=== PATIENT | female | born 2000 | race African-American/Black ===

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

== ENCOUNTER 2021-04-02 07:36 | Inpatient (IN) ==
[2021-04-02] MEDS ORDERED: OXYTOCIN 30 UNITS/500 ML BAG IV PRN ×2 (08:49)
[2021-04-02] MEDS ORDERED: PENICILLIN G POTASSIUM 6 MU in DEXTROSE 5% 250 ML IV STA (09:06)
--- NOTE | 2021-04-02 09:28 | History & Physical Report ---
Date of Service April 02, 2021 Assessment & Plan (1) 37 weeks gestation of : Admit to L&D for IOL for gHTN. CBC, CMP. T&S. Covid swab per protocol. Pitocin. (2) Gestational diabetes mellitus (GDM) affecting , antepartum: Admission and Anticipated Discharge Date Admission Date: April 02, 2021 History of Present Illness Chief Complaint: IOL Primary Care Provider: NADJA Anderson 20yo @ 37 11/01, IOL for gHTN. +FM, no VB, no LOF. No reg ctx. Rice bulb placed yesterday evening, fell out around 11:30 last night. Gest HTN *Weekly BP chk's with Doc *Weekly CBC, LFTs *Weekly NSTs @32wks and twice wkly @36wks *Growth US Q4wks *If IUGR: ROSEY w/UAD's weekly *Deliver 37-38wks *(If Gestational HTN<28wks bring to [facility]) Obesity *BMI 35 or >At start of preg, growth US @ 32wks 2 Vessel Cord * [place] [facility] [facility] [place] *Serial Growth US starting @ 28wks *NSTs @36wks GDM w/28wk glucola *Begin monthly AC Us's @24wks Vaping in Declines flu shot 09/11/20 Low Fraction. Doing [facility] repeat 12/04. Saw MFM - low risk cfdna GBS in urine- treat in labor Labetalol use for headaches - pt discussed with neuro, has not yet started labetalol. 150mg BID- call MFM for higher dosing recommendations (NOT ON MEDS) Allergies Allergy/AdvReac Type Severity Reaction Status Date / Time No Known Allergies Allergy Unknown NONE Verified 04/01/21 11:23 Home Medications Medication Instructions Recorded Confirmed Type prenat.vits,serg,mdg-lgfx-mdkco 1 tab PO DAILY 09/03/20 04/02/21 History magnesium oxide 250 mg PO DAILY 12/06/20 04/02/21 History riboflavin (vitamin B2) 400 mg 400 mg PO DAILY #30 tab 12/07/20 04/02/21 Rx tablet acetone (urine) test #50 ea 02/21/21 04/01/21 Rx blood sugar diagnostic #150 ea 02/21/21 04/01/21 Rx blood-glucose meter #1 ea 02/21/21 04/01/21 Rx lancets 33 gauge #150 02/21/21 04/01/21 Rx coenzyme Q10 100 mg PO DAILY 04/02/21 04/02/21 History Patient History Medical History Change in mental status Cyst, ovarian Lower abdominal pain Smoker Tachycardia Tylenol overdose Varicella vaccination Surgical History No history of previous surgery Family History Father Throat cancer Denies family history of Ovarian cancer Breast cancer Colorectal cancer Social History Smoking Status: Current every day smoker Tobacco Type: E-cigarettes / Vaping Cigarettes Per Day: 5-10; Second Hand Exposure: Yes; Hx Alcohol Use: No Hx Substance Use: No Preferred Language: Macedonian Communication Ability: Effective Visual Impairment: No Limitations Hearing Ability: Normal Sociology Teacher Required: No Beliefs That Will Affect Care: None marital status: Single marital status details: cecy Amanda (33) [phone] Current Living Situation: Parent Current Living Situation Comment: lives with her father and brother, no pets current occupational status: unemployed Feels Safe at Home: Yes Assistive Devices: None Review of Systems All systems reviewed & are unremarkable except as noted in HPI & below Physical Exam Physical Exam: T Cat 1 [place] rare SVE 3/50/-4 Constitutional: WD/WN, vitals as above Respiratory: normal respiratory effort, lungs clear to auscultation no respiratory distress Cardiovascular: Rate/Rhythm: regular rate and regular rhythm Gastrointestinal (Abdomen): Inspection/Auscultation: abdomen normal to inspection Percussion/Palpation: abdomen soft; abdomen nontender Gravid. No s/s chorio or abruption. Skin: no rashes, warm and dry Psychiatric: A+Ox3, euthymic affect Results & Data ([facility]) Vital Signs (Past 12 Hours) Vital Signs Temp Pulse Resp BP 04/02/21 08:16 84 126/58 L 04/02/21 08:06 36.7 C 86 20 142/97 H 04/02/21 08:04 86 142/97 H Coding Level of Care Code None Diagnoses 37 weeks gestation of Z3A.37 Gestational diabetes mellitus (GDM) affecting , antepartum O24.419
[2021-04-02] MEDS: LACTATED RINGER'S 1,000 ML IV PRN ×2 (09:35→19:26)
[2021-04-02 09:49] LABS: Hemoglobin 12.8 g/dL (12.0-16.0); Mean Corpuscular Hemoglobin 28.4 pg (25-34); Mean Corpuscular Hgb Conc 34.6 g/dL (32-36); Mean Platelet Volume 10.7 fL (7.4-10.4); Platelet Count 280 K/uL (130-400); RDW Coefficient of Variation 14.1 % (11.5-14.5); RDW Standard Deviation 42.2 fL (36.4-46.3); Red Blood Count 4.51 M/uL (4.2-5.4); White Blood Count 13.35 K/uL (4.8-10.8)
[2021-04-02 10:08] LABS: Alanine Aminotransferase 24 U/L (12-78); Albumin Level 2.6 gm/dl (3.4-5.0); Aspartate Aminotransferase 13 U/L (15-37); BUN Creatinine Ratio 8.8 (10-20); Blood Urea Nitrogen 5 mg/dl (7-18); Calcium 8.4 mg/dl (8.5-10.1); Carbon Dioxide 20 mmol/L (21-32); Chloride 108 mmol/L (98-107); Creatinine Clr Calc Pharmacy 293.1 ml/min; Est GFR (African American) > 150.0 ml/min; Est GFR (Non-African American) 132.4 ml/min; Glucose 109 mg/dl (70-99); Potassium 3.8 mmol/L (3.5-5.1); Sodium 138 mmol/L (136-145)
[2021-04-02 10:10] LABS: Albumin Globulin Ratio 0.6 (0.9-2); Alkaline Phosphatase 118 U/L (45-117); Bilirubin,Total 0.3 mg/dl (0.2-1); Globulin 4.3 gm/dl (2.5-4.0); Total Protein 6.9 gm/dl (6.4-8.2)
[2021-04-02] MEDS: PENICILLIN G POTASSIUM 3 MU in DEXTROSE 5% 100 ML IV PRN ×3 (13:13→21:31)
--- NOTE | 2021-04-02 19:04 | Labor Progress Brief Note ---
Date of Service April 02, 2021 Subjective Comfortable. FHT Cat 1 [place] Q 2 SVE 4/50/-3 AROM clear fluid Continue labor Assessment & Plan Admission and Anticipated Discharge Date Admission Date: April 02, 2021 Results & Data ([facility]) Vital Signs (Past 12 Hours) Vital Signs Temp Pulse Resp BP 04/02/21 18:53 36.6 C 82 20 117/64 04/02/21 17:30 20 04/02/21 17:22 79 145/81 H 04/02/21 16:22 75 141/81 H 04/02/21 15:30 20 04/02/21 14:54 36.8 C 82 20 130/62 04/02/21 14:30 20 04/02/21 14:00 18 04/02/21 13:30 20 04/02/21 13:00 18 04/02/21 12:48 80 119/75 04/02/21 12:47 20 04/02/21 12:23 20 04/02/21 12:00 20 04/02/21 11:36 88 144/78 H 04/02/21 11:19 18 04/02/21 10:30 20 04/02/21 09:35 20 04/02/21 08:16 84 126/58 L 04/02/21 08:06 36.7 C 86 20 142/97 H 04/02/21 08:04 86 142/97 H Coding Level of Care Code None
[2021-04-02] MEDS ORDERED: BUPIVACAINE 0.25% 30 ML VIAL ONE (19:31)
[2021-04-02] MEDS ORDERED: ePHEDrine sulfate 50 MG/ML AMP ONE (19:31)
[2021-04-02] MEDS ORDERED: fentaNYL citrate 100 MCG/2 ML VIAL ONE (19:31)
[2021-04-02] MEDS ORDERED: SODIUM CHLORIDE 0.9% INJ 10 ML VIAL ONE (19:31)
[2021-04-02] MEDS ORDERED: fentaNYL 2MCG/ML ROPIVACAINE 1.25MG/ML 100 ML BAG EPI ONE (19:32)
--- NOTE | 2021-04-02 20:32 | Anesthesiology Consultation ---
Date of Service April 02, 2021 Assessment & Plan (1) Encounter for pre-operative examination: Chart Review Chart Review: Acceptable Risk for Labor Epidural History Height/Weight Height: 6 ft 1 in Weight: 181.437 kg Allergies Allergy/AdvReac Type Severity Reaction Status Date / Time No Known Allergies Allergy Unknown NONE Verified 04/01/21 11:23 Medications Home Medications Medication Instructions Recorded Confirmed Last Taken prenat.vits,segr,qjh-gkqj-qhsek 1 tab PO DAILY 09/03/20 04/02/21 04/02/21 06:30 magnesium oxide 250 mg PO DAILY 12/06/20 04/02/21 04/02/21 06:30 riboflavin (vitamin B2) 400 mg 400 mg PO DAILY #30 tab 12/07/20 04/02/21 1 06:30 tablet acetone (urine) test #50 ea 02/21/21 04/01/21 Unknown blood sugar diagnostic #150 ea 02/21/21 04/01/21 Unknown blood-glucose meter #1 ea 02/21/21 04/01/21 Unknown lancets 33 gauge #150 ea 02/21/21 04/01/21 Unknown coenzyme Q10 100 mg PO DAILY 04/02/21 04/02/21 04/02/21 06:30 Active Medications Generic Name Dose Route Start Last Admin Trade Name Santoq PRN Reason Stop Dose Admin Lactated Ringer's 1,000 mls @ 125 mls/hr 04/02/21 08:49 04/02/21 20:00 Lr IV 04/04/21 08:48 125 mls/hr .Q8H PRN Infusion L&D Protocol Protocol Penicillin G Potassium 3 mu/ 106 mls @ 100 mls/hr 04/02/21 08:49 04/02/21 17:12 Dextrose IV 04/12/21 08:48 100 mls/hr Q4H PRN Administration Give until delivery Oxytocin 30 units in 500 mls @ 15 mls/hr 04/02/21 08:49 04/02/21 14:52 Pitocin IV 04/04/21 08:48 0.9 units/hr .Q24H PRN 15 mls/hr Labor Induction/Augmentation Titration Protocol 0.9 UNITS/HR Past Medical History Medical History Change in mental status Cyst, ovarian Lower abdominal pain Smoker Tachycardia Tylenol overdose Varicella vaccination Past Family History Family History Father Throat cancer Denies family history of Ovarian cancer Breast cancer Colorectal cancer Past Surgical History Surgical History No history of previous surgery Social History Smoking Status: Current every day smoker tobacco type: e-cigarettes Smoking cigarettes per day: 5-10 Hx Alcohol Use: No Hx Substance Use: No Physical Exam Vital Signs Last Vital Signs Temp 36.5 C 04/02/21 19:07 Pulse 88 04/02/21 20:12 Resp 18 04/02/21 20:00 BP 144/70 H 04/02/21 20:12 Testing Laboratory Results 04/02/21 09:31 04/02/21 09:31 Blood Type O Positive 04/02/21 09:31 Antibody Screen NEGATIVE 04/02/21 09:31 04/02/21 04/02/21 04/02/21 20:10 19:14 16:12 POC Glucose 88 88 98 04/02/21 04/02/21 14:04 09:42 POC Glucose 103 H 110 H
[2021-04-02] MEDS ORDERED: ePHEDrine sulfate 50 MG/ML AMP IV PRN (22:28)
[2021-04-02] MEDS ORDERED: NALOXONE HCL 1 MG in SODIUM CHLORIDE 0.9% 1000ML 1,000 ML IV PRN (22:28)
[2021-04-02] MEDS ORDERED: ONDANSETRON INJ 2 MG/ML 2 ML VIAL IV PRN (22:28)
[2021-04-02] MEDS ORDERED: NALOXONE HCL 0.4 MG/1 ML VIAL/CARP IV PRN (22:28)
[2021-04-02] MEDS ORDERED: fentaNYL 2MCG/ML ROPIVACAINE 1.25MG/ML 100 ML BAG EPI PRN (22:28)
--- NOTE | 2021-04-02 23:09 | Labor Progress Brief Note ---
Date of Service April 02, 2021 Subjective Feeling better now with epidural. FHT Cat 1 [place] - unable to trace ctx SVE /-1 IUPC, FSE placed. Assessment & Plan Admission and Anticipated Discharge Date Admission Date: April 02, 2021 Results & Data ([facility]) Vital Signs (Past 12 Hours) Vital Signs Temp Pulse Resp BP Pulse Ox 04/02/21 23:04 81 98 04/02/21 22:59 86 99 04/02/21 22:57 81 129/67 04/02/21 22:54 76 97 04/02/21 22:53 75 126/62 04/02/21 22:49 80 98 04/02/21 22:47 88 125/68 04/02/21 22:44 82 98 04/02/21 22:42 82 116/63 04/02/21 22:40 86 120/65 04/02/21 22:39 82 98 04/02/21 22:38 82 127/69 04/02/21 22:36 80 123/64 04/02/21 22:34 82 122/65 98 04/02/21 22:32 80 122/67 04/02/21 22:30 96 H 135/76 04/02/21 22:29 89 98 04/02/21 22:28 82 126/63 04/02/21 22:26 78 129/62 04/02/21 22:24 80 126/59 L 98 04/02/21 22:22 82 125/58 L 04/02/21 22:20 87 124/58 L 04/02/21 22:19 95 H 97 04/02/21 22:18 89 119/56 L 04/02/21 22:16 95 H 130/62 04/02/21 22:14 110 H 139/88 98 04/02/21 22:12 114 H 137/89 04/02/21 22:09 114 H 96 04/02/21 22:04 125 H 98 04/02/21 21:59 97 H 98 04/02/21 21:54 100 H 97 04/02/21 21:49 103 H 99 04/02/21 21:44 83 96 04/02/21 21:42 96 H 143/78 H 04/02/21 21:39 100 H 98 04/02/21 21:34 107 H 99 04/02/21 21:29 117 H 99 04/02/21 21:28 124 H 94 04/02/21 21:24 108 H 96 04/02/21 21:19 111 H 96 04/02/21 21:14 140 H 97 04/02/21 21:11 119 H 91 04/02/21 21:09 128 H 98 04/02/21 21:04 137 H 97 04/02/21 20:59 142 H 98 04/02/21 20:54 157 H 98 04/02/21 20:49 102 H 100 04/02/21 20:44 114 H 99 04/02/21 20:39 93 H 99 04/02/21 20:37 88 149/72 H 04/02/21 20:34 91 H 98 04/02/21 20:12 88 144/70 H 04/02/21 20:00 18 04/02/21 19:30 18 04/02/21 19:20 75 141/65 H 04/02/21 19:14 82 163/70 H 04/02/21 19:07 36.5 C 18 04/02/21 18:53 36.6 C 82 20 117/64 04/02/21 17:30 20 04/02/21 17:22 79 145/81 H 04/02/21 16:22 75 141/81 H 04/02/21 15:30 20 04/02/21 14:54 36.8 C 82 20 130/62 04/02/21 14:30 20 04/02/21 14:00 18 04/02/21 13:30 20 04/02/21 13:00 18 04/02/21 12:48 80 119/75 04/02/21 12:47 20 04/02/21 12:23 20 04/02/21 12:00 20 04/02/21 11:36 88 144/78 H 04/02/21 11:19 18 Coding Level of Care Code None
[2021-04-03] MEDS: LACTATED RINGER'S 1,000 ML IV PRN ×2 (00:33→09:08)
[2021-04-03] MEDS: PENICILLIN G POTASSIUM 3 MU in DEXTROSE 5% 100 ML IV PRN ×2 (01:45→05:40)
--- NOTE | 2021-04-03 03:48 | Labor Progress Brief Note ---
Date of Service April 03, 2021 Subjective Getting more uncomfortable. FHT Cat 1 [place] Q 2-3, adequate ctx with IUPC SVE 5-6/100/0 Assessment & Plan Admission and Anticipated Discharge Date Admission Date: April 02, 2021 Results & Data ([facility]) Vital Signs (Past 12 Hours) Vital Signs Temp Pulse Resp BP Pulse Ox 04/03/21 03:44 104 H 99 04/03/21 03:43 104 H 134/77 04/03/21 03:39 92 H 99 04/03/21 03:34 88 97 04/03/21 03:30 16 04/03/21 03:29 85 129/74 97 04/03/21 03:24 82 97 04/03/21 03:19 100 H 98 04/03/21 03:14 82 138/73 98 04/03/21 03:09 82 97 04/03/21 03:04 103 H 97 04/03/21 03:00 80 116/60 04/03/21 02:59 80 96 04/03/21 02:54 84 96 04/03/21 02:49 83 97 04/03/21 02:45 93 H 124/70 04/03/21 02:44 94 H 96 04/03/21 02:39 92 H 98 04/03/21 02:34 82 98 04/03/21 02:30 82 18 132/62 04/03/21 02:29 82 98 04/03/21 02:24 95 H 98 04/03/21 02:19 88 97 04/03/21 02:14 77 97 04/03/21 02:13 78 113/56 L 04/03/21 02:09 91 H 97 04/03/21 02:04 80 98 04/03/21 01:59 89 115/59 L 98 04/03/21 01:57 18 04/03/21 01:54 84 96 04/03/21 01:50 36.6 C 18 04/03/21 01:49 81 95 04/03/21 01:45 83 116/56 L 04/03/21 01:44 84 96 04/03/21 01:39 81 94 04/03/21 01:38 80 94 04/03/21 01:34 81 97 04/03/21 01:31 85 94 04/03/21 01:30 80 18 132/69 04/03/21 01:29 79 96 04/03/21 01:24 76 97 04/03/21 01:19 85 96 04/03/21 01:14 81 137/73 97 04/03/21 01:12 86 93 04/03/21 01:09 82 97 04/03/21 01:06 86 94 04/03/21 01:04 83 95 04/03/21 01:00 18 04/03/21 00:59 79 132/70 96 04/03/21 00:54 79 97 04/03/21 00:49 80 96 04/03/21 00:44 75 122/59 L 97 04/03/21 00:39 79 97 04/03/21 00:34 80 96 04/03/21 00:29 94 H 97 04/03/21 00:28 90 127/69 04/03/21 00:24 83 95 04/03/21 00:19 85 95 04/03/21 00:14 82 123/67 97 04/03/21 00:09 81 97 04/03/21 00:04 78 97 04/03/21 00:00 18 04/02/21 23:59 90 98 04/02/21 23:58 89 130/71 04/02/21 23:54 80 97 04/02/21 23:49 83 97 04/02/21 23:44 95 H 98 04/02/21 23:43 75 128/69 04/02/21 23:41 98 H 94 04/02/21 23:39 82 97 04/02/21 23:34 78 97 04/02/21 23:30 18 04/02/21 23:29 78 121/68 97 04/02/21 23:24 87 97 04/02/21 23:19 88 97 04/02/21 23:14 93 H 122/71 98 04/02/21 23:09 72 97 04/02/21 23:04 81 98 04/02/21 23:00 18 04/02/21 22:59 86 99 04/02/21 22:57 81 129/67 04/02/21 22:54 76 97 04/02/21 22:53 75 126/62 04/02/21 22:49 80 98 04/02/21 22:47 36.5 C 88 125/68 04/02/21 22:44 82 98 04/02/21 22:42 82 116/63 04/02/21 22:40 86 120/65 04/02/21 22:39 82 98 04/02/21 22:38 82 127/69 04/02/21 22:36 80 123/64 04/02/21 22:34 82 122/65 98 04/02/21 22:32 80 122/67 04/02/21 22:30 96 H 18 135/76 04/02/21 22:29 89 98 04/02/21 22:28 82 126/63 04/02/21 22:26 78 129/62 04/02/21 22:24 80 126/59 L 98 04/02/21 22:22 82 125/58 L 04/02/21 22:20 87 124/58 L 04/02/21 22:19 95 H 97 04/02/21 22:18 89 119/56 L 04/02/21 22:16 95 H 130/62 04/02/21 22:14 110 H 139/88 98 04/02/21 22:12 114 H 137/89 04/02/21 22:09 114 H 96 04/02/21 22:04 125 H 98 04/02/21 22:00 20 04/02/21 21:59 97 H 98 04/02/21 21:54 100 H 97 04/02/21 21:49 103 H 99 04/02/21 21:44 83 96 04/02/21 21:42 96 H 143/78 H 04/02/21 21:39 100 H 98 04/02/21 21:34 107 H 99 04/02/21 21:30 20 04/02/21 21:29 117 H 99 04/02/21 21:28 124 H 94 04/02/21 21:24 108 H 96 04/02/21 21:19 111 H 96 04/02/21 21:14 140 H 97 04/02/21 21:11 119 H 91 04/02/21 21:09 128 H 98 04/02/21 21:04 137 H 97 04/02/21 21:00 20 04/02/21 20:59 142 H 98 04/02/21 20:54 157 H 98 04/02/21 20:49 102 H 100 04/02/21 20:44 114 H 99 04/02/21 20:39 93 H 99 04/02/21 20:37 88 149/72 H 04/02/21 20:34 91 H 18 98 04/02/21 20:12 88 144/70 H 04/02/21 20:00 18 04/02/21 19:30 18 04/02/21 19:20 75 141/65 H 04/02/21 19:14 82 163/70 H 04/02/21 19:07 36.5 C 18 04/02/21 18:53 36.6 C 82 20 117/64 04/02/21 17:30 20 04/02/21 17:22 79 145/81 H 04/02/21 16:22 75 141/81 H Coding Level of Care Code None
[2021-04-03] MEDS ORDERED: NURSING L&D Epidural Breakthrough Pain Update ONE (04:49)
[2021-04-03] MEDS ORDERED: BUPIVACAINE 0.25% 30 ML VIAL ONE (05:28)
[2021-04-03] MEDS ORDERED: SODIUM CHLORIDE 0.9% INJ 10 ML VIAL ONE (05:28)
[2021-04-03] MEDS ORDERED: fentaNYL citrate 100 MCG/2 ML VIAL ONE (05:28)
--- NOTE | 2021-04-03 05:35 | Communication Note ---
Date of Service: April 03, 2021 At 0530, pt. epidural cath was bolused w/ 10 ml 0.17% bupivacaine + 100 mcgs fentanyl;negative aspiration;vital signs stable.
--- NOTE | 2021-04-03 08:17 | Labor Progress Brief Note ---
Date of Service April 03, 2021 Subjective Patient is comfortable with epidural. Assessment & Plan (1) Group beta Strep positive: (2) 37 weeks gestation of : (3) Gestational diabetes mellitus (GDM) affecting , antepartum: (4) Hypertension: (5) Two vessel umbilical cord: Admission and Anticipated Discharge Date Admission Date: April 02, 2021 Patient has had adequate contractions since probably 12am today. arom x 14 hours, GBS positive with adequate treatment. Patient has made no changed since 3:30am at last check. WE started this labor at 3cm dilated. I have concern that we have FTP with this patient and explained that to her. I do not have a good explanation of why we are not progressing. No s/s of chorio and fetus category two (variables) but reassuring, with scalp stim. We discussed the risks benefits of continued labor vs. proceeding with c/s at this point. Discussed the risks of c/s. Discussed increased risk of infection with multiple exams and internals. She is considering her options. BPs have been overall ok, occasional 160 noted. Her blood sugars have been in the low 100s. Physical Exam Constitutional: WD/WN, vitals as above Psychiatric: A+Ox3, euthymic affect Genitourinary: cx--5.5/100/0--no change since 3:30am toco--q3-4 min, iupc in , pit at 20 MVUS have been 200+ since at least 3:30 and like midnight arom since 6:30 pm efm--135 with mod variability, accels to 150s, occasional variable decel Results & Data ([facility]) Vital Signs (Past 12 Hours) Vital Signs Temp Pulse Resp BP Pulse Ox 04/03/21 08:05 82 131/73 04/03/21 08:04 81 96 04/03/21 07:59 92 H 97 04/03/21 07:54 76 96 04/03/21 07:53 80 92 04/03/21 07:49 79 132/76 95 04/03/21 07:48 82 94 04/03/21 07:44 78 95 04/03/21 07:43 78 94 04/03/21 07:39 78 95 04/03/21 07:35 84 135/82 04/03/21 07:34 86 98 04/03/21 07:29 81 95 04/03/21 07:28 82 94 04/03/21 07:24 76 96 04/03/21 07:22 80 94 04/03/21 07:19 77 132/71 95 04/03/21 07:14 83 95 04/03/21 07:13 88 94 04/03/21 07:09 90 97 04/03/21 07:05 80 94 04/03/21 07:04 81 139/74 95 04/03/21 07:00 18 04/03/21 06:59 76 95 04/03/21 06:54 77 95 04/03/21 06:49 84 135/73 96 04/03/21 06:44 77 95 04/03/21 06:41 81 94 04/03/21 06:39 85 95 04/03/21 06:34 93 H 112/57 L 95 04/03/21 06:31 91 H 94 04/03/21 06:29 91 H 95 04/03/21 06:24 87 96 04/03/21 06:19 89 119/65 98 04/03/21 06:17 95 H 93 04/03/21 06:14 90 96 04/03/21 06:09 84 97 04/03/21 06:06 86 118/60 04/03/21 06:04 89 97 04/03/21 05:59 97 H 97 04/03/21 05:54 88 97 04/03/21 05:49 89 95 04/03/21 05:48 82 148/77 H 04/03/21 05:46 89 130/72 04/03/21 05:44 101 H 117/59 L 96 04/03/21 05:42 91 H 136/75 04/03/21 05:40 82 142/79 H 04/03/21 05:39 79 96 04/03/21 05:38 88 150/83 H 04/03/21 05:36 83 155/89 H 04/03/21 05:34 36.7 C 103 H 154/88 H 98 04/03/21 05:32 104 H 148/92 H 04/03/21 05:30 20 04/03/21 05:29 92 H 161/84 H 100 04/03/21 05:24 78 97 04/03/21 05:19 86 97 04/03/21 05:15 96 H 121/70 06/09/21 05:14 95 H 97 04/03/21 05:09 104 H 100 04/03/21 05:06 102 H 92 04/03/21 05:04 86 98 04/03/21 05:00 18 04/03/21 04:59 97 H 150/84 H 100 04/03/21 04:54 95 H 95 04/03/21 04:49 86 97 04/03/21 04:45 90 161/93 H 04/03/21 04:44 92 H 99 04/03/21 04:39 122 H 97 04/03/21 04:34 101 H 100 04/03/21 04:32 90 135/63 04/03/21 04:30 18 04/03/21 04:29 89 98 04/03/21 04:24 93 H 98 04/03/21 04:19 92 H 98 04/03/21 04:15 99 H 173/71 H 04/03/21 04:14 98 H 95 04/03/21 04:09 95 H 96 04/03/21 04:04 90 97 04/03/21 04:00 18 04/03/21 03:59 85 97 04/03/21 03:58 88 138/85 04/03/21 03:57 36.7 C 04/03/21 03:54 101 H 96 04/03/21 03:49 97 H 94 04/03/21 03:43 104 H 134/77 04/03/21 03:39 92 H 99 04/03/21 03:34 88 97 04/03/21 03:30 16 04/03/21 03:29 85 129/74 97 04/03/21 03:24 82 97 04/03/21 03:19 100 H 98 04/03/21 03:14 82 138/73 98 04/03/21 03:09 82 97 04/03/21 03:04 103 H 97 04/03/21 03:00 80 16 116/60 04/03/21 02:59 80 96 04/03/21 02:54 84 96 04/03/21 02:49 83 97 04/03/21 02:45 93 H 124/70 04/03/21 02:44 94 H 96 04/03/21 02:39 92 H 98 04/03/21 02:34 82 98 04/03/21 02:30 82 18 132/62 04/03/21 02:29 82 98 04/03/21 02:24 95 H 98 04/03/21 02:19 88 97 04/03/21 02:14 77 97 04/03/21 02:13 78 113/56 L 04/03/21 02:09 91 H 97 04/03/21 02:04 80 98 04/03/21 01:59 89 115/59 L 98 04/03/21 01:57 18 04/03/21 01:54 84 96 04/03/21 01:50 36.6 C 18 04/03/21 01:49 81 95 04/03/21 01:45 83 116/56 L 04/03/21 01:44 84 96 04/03/21 01:39 81 94 04/03/21 01:38 80 94 04/03/21 01:34 81 97 04/03/21 01:31 85 94 04/03/21 01:30 80 18 132/69 04/03/21 01:29 79 96 04/03/21 01:24 76 97 04/03/21 01:19 85 96 04/03/21 01:14 81 137/73 97 04/03/21 01:12 86 93 04/03/21 01:09 82 97 04/03/21 01:06 86 94 04/03/21 01:04 83 95 04/03/21 01:00 18 04/03/21 00:59 79 132/70 96 04/03/21 00:54 79 97 04/03/21 00:49 80 96 04/03/21 00:44 75 122/59 L 97 04/03/21 00:39 79 97 04/03/21 00:34 80 96 04/03/21 00:29 94 H 97 04/03/21 00:28 90 127/69 04/03/21 00:24 83 95 04/03/21 00:19 85 95 04/03/21 00:14 82 123/67 97 04/03/21 00:09 81 97 04/03/21 00:04 78 97 04/03/21 00:00 18 04/02/21 23:59 90 98 04/02/21 23:58 89 130/71 04/02/21 23:54 80 97 04/02/21 23:49 83 97 04/02/21 23:44 95 H 98 04/02/21 23:43 75 128/69 04/02/21 23:41 98 H 94 04/02/21 23:39 82 97 04/02/21 23:34 78 97 04/02/21 23:30 18 04/02/21 23:29 78 121/68 97 04/02/21 23:24 87 97 04/02/21 23:19 88 97 04/02/21 23:14 93 H 122/71 98 04/02/21 23:09 72 97 04/02/21 23:04 81 98 04/02/21 23:00 18 04/02/21 22:59 86 99 04/02/21 22:57 81 129/67 04/02/21 22:54 76 97 04/02/21 22:53 75 126/62 04/02/21 22:49 80 98 04/02/21 22:47 36.5 C 88 125/68 04/02/21 22:44 82 98 04/02/21 22:42 82 116/63 04/02/21 22:40 86 120/65 04/02/21 22:39 82 98 04/02/21 22:38 82 127/69 04/02/21 22:36 80 123/64 04/02/21 22:34 82 122/65 98 04/02/21 22:32 80 122/67 04/02/21 22:30 96 H 18 135/76 04/02/21 22:29 89 98 04/02/21 22:28 82 126/63 04/02/21 22:26 78 129/62 04/02/21 22:24 80 126/59 L 98 04/02/21 22:22 82 125/58 L 04/02/21 22:20 87 124/58 L 04/02/21 22:19 95 H 97 04/02/21 22:18 89 119/56 L 04/02/21 22:16 95 H 130/62 04/02/21 22:14 110 H 139/88 98 04/02/21 22:12 114 H 137/89 04/02/21 22:09 114 H 96 04/02/21 22:04 125 H 98 04/02/21 22:00 20 06/08/21 21:59 97 H 98 04/02/21 21:54 100 H 97 04/02/21 21:49 103 H 99 04/02/21 21:44 83 96 04/02/21 21:42 96 H 143/78 H 04/02/21 21:39 100 H 98 04/02/21 21:34 107 H 99 04/02/21 21:30 20 04/02/21 21:29 117 H 99 04/02/21 21:28 124 H 94 04/02/21 21:24 108 H 96 04/02/21 21:19 111 H 96 04/02/21 21:14 140 H 97 04/02/21 21:11 119 H 91 04/02/21 21:09 128 H 98 04/02/21 21:04 137 H 97 04/02/21 21:00 20 04/02/21 20:59 142 H 98 04/02/21 20:54 157 H 98 04/02/21 20:49 102 H 100 04/02/21 20:44 114 H 99 04/02/21 20:39 93 H 99 04/02/21 20:37 88 149/72 H 04/02/21 20:34 91 H 18 98 04/02/21 20:12 88 144/70 H Coding Level of Care Code None Diagnoses Group beta Strep positive B95.1 37 weeks gestation of Z3A.37 Gestational diabetes mellitus (GDM) affecting , antepartum O24.419 Hypertension I10 Two vessel umbilical cord Q27.0
--- NOTE | 2021-04-03 09:02 | Communication Note ---
Date of Service: April 03, 2021 Patient has decided to proceed with c/s. Consent reviewed and signed. Fetus reassuring.
[2021-04-03] MEDS ORDERED: LACTATED RINGER'S 1,000 ML IV SCH ×2 (09:15→11:59)
[2021-04-03] MEDS ORDERED: CITRIC ACID/SODIUM CITRATE 15 ML UDC ONE (09:16)
[2021-04-03] MEDS ORDERED: CEFAZOLIN 3000 MG IV SCH (09:30)
[2021-04-03] MEDS ORDERED: LIDOCAINE 2%/EPINEPHRINE 1:200,000 20 ML SDV ONE (09:34)
--- NOTE | 2021-04-03 11:09 | Operative Report ---
PG Post Operative Report Pre & Post Diagnosis Operation Date: 04/03/21 08:45 Pre-Op Diagnosis: at 37 weeks gestation; 2 vessel cord; chronic hypertension; failure to progress Post-Op Diagnosis: at 37 weeks gestation; 2 vessel cord; chronic hypertension; failure to progress I identified the patient and participated in the time-out.: Yes Procedure Operation Date: 04/03/21 08:45 Actual Procedures Primary low transverse Section in OR(Not Applicable) - Myrna Key MD, FACOG Surgeon Myrna Key MD, FACOG Complex Care Nurse Dr. Graves Estimated Blood Loss 600 Findings Consistent with Post-Op Diagnosis viable male infant in cephalic presentation. apgars 7/9. nl uterus/tubes/ovs bilaterally Fluids 1200cc Specimens placenta Drains aly Anesthesia Type Labor Epidural Complications none Disposition Accompanied Patient To Recovery: Yes Disposition: L&D Indications with iup at 37 weeks with 2vc, chtn, gdm with failure to progress. Description of Procedure The patient was taken to the operating room where she was identified verbally and by bracelet. She was seated on the operating table where epidural was dosed by anesthesia. She was then placed in the supine position with a leftward tilt. A Aly catheter had been placed sterilely. the patient was prepped and draped in a normal standard fashion. the anesthetic was tested and found to be adequate. A time-out was held, identifying correct patient, procedure, positioning and preoperative antibiotics. There were no concerns. A Pfannenstiel skin incision was made with a knife and taken down to the underlying layer of fascia with the knife and Bovie electrocautery. Bleeding was attended to with the Bovie. The fascia was incised in the midline with the knife and taken out laterally with scissors. The superior edge of the fascial incision was grasped, elevated and the underlying layer of rectus muscle was taken off bluntly and with scissors. In a similar fashion, the inferior edge of the fascial incision was grasped, elevated and the underlying layer of rectus muscle was taken off bluntly and with scissors. The muscles were bluntly in the midline. The peritoneum was entered bluntly. The incision was then stretched. The bladder blade was placed. The vesicouterine peritoneum was identified, entered with scissors and taken out laterally with scissors. The bladder flap was created digitally A hysterotomy incision was scored with a knife and the incision was stretched superiorly and inferiorly with the trimmer operator's fingers. The operators hand was placed into the incision and the head was delivered atraumatically. No nuchal cord. The nose and mouth were bulb suctioned. the rest of the infant was then delivered without difficulty. The nose and mouth were again bulb suctioned. The cord was clamped and cut and the infant was then handed off to the awaiting group home supervisor for drying and attention. Cord blood and segment were obtained. Fluid was clear The placenta was Manually extracted. Membranes that were adherent were removed with ring forceps. The uterus was exteriorized and cleared of all clot and debris with moistened laparotomy sponges. The hysterotomy incision was repaired in two layers, the first in a running locked layer, the second in an imbricating layer. Hemostasis was noted to be good. Posterior cul-de-sac was irrigated and cleared of all clot and debris. The hysterotomy incision was again inspected and found to be hemostatic. the uterus was reinteriorized. Hysterotomy incision was again inspected and found to be hemostatic. Rectus muscles were reapproximated with several interrupted stitches of 0 Vicryl. The fascia was then reapproximated with 0 Vicryl starting at the edges and meeting in the midline. The subcuticular tissues were copiously irrigated and bleeding was attended to with cautery. 2-0 plain gut suture was used to close the sub-Q fat. The skin was then closed with 4-0 Vicryl in a subcuticular fashion. All sponge, lap and needle counts were correct x 2 and the patient was taken to recovery in stable condition. I attest to the content of the Intraoperative Record and any orders documented therein. Any exceptions are noted below. OB Procedure charges OB Charges 93061 C/S
[2021-04-03] MEDS ORDERED: LACTATED RINGER'S 500 ML IV PRN (11:15)
[2021-04-03] MEDS ORDERED: KETOROLAC 30 MG/ML VIAL IV PRN (11:15)
[2021-04-03] MEDS ORDERED: NO NARCOTICS OR SEDATIVES SCH (11:15)
[2021-04-03] MEDS ORDERED: HYDROmorphone INJ 1 MG/ML SYRINGE IV PRN (11:15)
[2021-04-03] MEDS ORDERED: diphenhydrAMINE 50 MG/ML VIAL IV PRN (11:15)
[2021-04-03] MEDS ORDERED: ePHEDrine sulfate 50 MG/ML AMP IV PRN (11:15)
[2021-04-03] MEDS ORDERED: NALOXONE HCL 1 MG in SODIUM CHLORIDE 0.9% 1000ML 1,000 ML IV PRN (11:15)
[2021-04-03] MEDS ORDERED: DC INTRASPINAL MORPHINE SCH (11:15)
[2021-04-03] MEDS ORDERED: NALOXONE HCL 0.4 MG/1 ML VIAL/CARP IV PRN (11:15)
[2021-04-03] MEDS ORDERED: PROMETHAZINE HCL 25 MG in SODIUM CHLORIDE 0.9% 50 ML IV PRN (11:15)
[2021-04-03] MEDS ORDERED: SODIUM CHLORIDE 0.9% 1000ML 1,000 ML IV SCH (11:15)
[2021-04-03] MEDS ORDERED: NALOXONE HCL 0.08 MG in SYRINGE 1.8 ML IV PRN (11:15)
[2021-04-03] MEDS ORDERED: MoRPHine SULFATE PF 1 MG/ML 10 ML AMP/VIAL EPI ONE (11:15)
[2021-04-03] MEDS ORDERED: ONDANSETRON INJ 2 MG/ML 2 ML VIAL IV PRN (11:15)
--- NOTE | 2021-04-03 11:18 | Anesthesiology Progress Note ---
Date of Service April 03, 2021 Anesthesia Post Procedure Vital Signs Vital Signs: Temp Pulse Resp BP Pulse Ox 04/03/21 11:16 82 99 04/03/21 11:14 88 93 04/03/21 11:12 76 103/51 L 04/03/21 11:11 87 96 04/03/21 11:06 80 99 04/03/21 11:02 82 112/55 L 04/03/21 11:01 74 98 04/03/21 09:48 88 150/76 H 04/03/21 09:46 83 147/85 H 04/03/21 09:43 97 H 143/76 H 04/03/21 09:39 90 97 04/03/21 09:34 97 H 98 04/03/21 09:31 93 H 93 04/03/21 09:29 89 98 04/03/21 09:24 87 96 04/03/21 09:21 100 H 133/74 04/03/21 09:19 87 95 04/03/21 09:14 89 96 04/03/21 09:09 87 97 04/03/21 09:04 92 H 97 04/03/21 08:59 88 97 04/03/21 08:54 90 97 04/03/21 08:49 85 129/65 97 04/03/21 08:44 90 97 04/03/21 08:39 86 97 04/03/21 08:34 87 128/63 97 04/03/21 08:29 89 97 04/03/21 08:24 88 97 04/03/21 08:20 89 143/84 H 04/03/21 08:19 98 H 96 04/03/21 08:14 93 H 98 04/03/21 08:09 93 H 98 04/03/21 08:05 82 131/73 04/03/21 08:04 81 96 04/03/21 07:59 92 H 97 04/03/21 07:54 76 96 04/03/21 07:53 80 92 04/03/21 07:49 79 132/76 95 04/03/21 07:48 82 94 04/03/21 07:44 78 95 04/03/21 07:43 78 94 04/03/21 07:39 78 95 04/03/21 07:35 84 135/82 04/03/21 07:34 86 98 04/03/21 07:29 81 95 04/03/21 07:28 82 94 04/03/21 07:24 76 96 04/03/21 07:22 80 94 04/03/21 07:19 77 132/71 95 04/03/21 07:14 83 95 04/03/21 07:13 88 94 04/03/21 07:09 90 97 04/03/21 07:05 80 94 04/03/21 07:04 81 139/74 95 04/03/21 07:00 18 04/03/21 06:59 76 95 04/03/21 06:54 77 95 04/03/21 06:49 84 135/73 96 04/03/21 06:44 77 95 04/03/21 06:41 81 94 04/03/21 06:39 85 95 04/03/21 06:34 93 H 112/57 L 95 04/03/21 06:31 91 H 94 04/03/21 06:29 91 H 95 04/03/21 06:24 87 96 04/03/21 06:19 89 119/65 98 04/03/21 06:17 95 H 93 04/03/21 06:14 90 96 04/03/21 06:09 84 97 04/03/21 06:06 86 118/60 04/03/21 06:04 89 97 04/03/21 05:59 97 H 97 04/03/21 05:54 88 97 04/03/21 05:49 89 95 04/03/21 05:48 82 148/77 H 04/03/21 05:46 89 130/72 04/03/21 05:44 101 H 117/59 L 96 04/03/21 05:42 91 H 136/75 04/03/21 05:40 82 142/79 H 04/03/21 05:39 79 96 04/03/21 05:38 88 150/83 H 04/03/21 05:36 83 155/89 H 04/03/21 05:34 36.7 C 103 H 154/88 H 98 04/03/21 05:32 104 H 148/92 H 04/03/21 05:30 20 04/03/21 05:29 92 H 161/84 H 100 04/03/21 05:24 78 97 04/03/21 05:19 86 97 04/03/21 05:15 96 H 121/70 04/03/21 05:14 95 H 97 04/03/21 05:09 104 H 100 04/03/21 05:06 102 H 92 04/03/21 05:04 86 98 04/03/21 05:00 18 04/03/21 04:59 97 H 150/84 H 100 04/03/21 04:54 95 H 95 04/03/21 04:49 86 97 04/03/21 04:45 90 161/93 H 04/03/21 04:44 92 H 99 04/03/21 04:39 122 H 97 04/03/21 04:34 101 H 100 04/03/21 04:32 90 135/63 04/03/21 04:30 18 04/03/21 04:29 89 98 04/03/21 04:24 93 H 98 04/03/21 04:19 92 H 98 04/03/21 04:15 99 H 173/71 H 04/03/21 04:14 98 H 95 04/03/21 04:09 95 H 96 04/03/21 04:04 90 97 04/03/21 04:00 18 04/03/21 03:59 85 97 04/03/21 03:58 88 138/85 04/03/21 03:57 36.7 C 04/03/21 03:54 101 H 96 04/03/21 03:49 97 H 94 04/03/21 03:43 104 H 134/77 04/03/21 03:39 92 H 99 04/03/21 03:34 88 97 04/03/21 03:30 16 04/03/21 03:29 85 129/74 97 04/03/21 03:24 82 97 04/03/21 03:19 100 H 98 04/03/21 03:14 82 138/73 98 04/03/21 03:09 82 97 04/03/21 03:04 103 H 97 04/03/21 03:00 80 16 116/60 04/03/21 02:59 80 96 04/03/21 02:54 84 96 04/03/21 02:49 83 97 04/03/21 02:45 93 H 124/70 04/03/21 02:44 94 H 96 04/03/21 02:39 92 H 98 04/03/21 02:34 82 98 04/03/21 02:30 82 18 132/62 04/03/21 02:29 82 98 04/03/21 02:24 95 H 98 04/03/21 02:19 88 97 04/03/21 02:14 77 97 04/03/21 02:13 78 113/56 L 04/03/21 02:09 91 H 97 04/03/21 02:04 80 98 04/03/21 01:59 89 115/59 L 98 04/03/21 01:57 18 04/03/21 01:54 84 96 04/03/21 01:50 36.6 C 18 04/03/21 01:49 81 95 04/03/21 01:45 83 116/56 L 04/03/21 01:44 84 96 04/03/21 01:39 81 94 04/03/21 01:38 80 94 04/03/21 01:34 81 97 04/03/21 01:31 85 94 04/03/21 01:30 80 18 132/69 04/03/21 01:29 79 96 04/03/21 01:24 76 97 04/03/21 01:19 85 96 04/03/21 01:14 81 137/73 97 04/03/21 01:12 86 93 04/03/21 01:09 82 97 04/03/21 01:06 86 94 04/03/21 01:04 83 95 04/03/21 01:00 18 04/03/21 00:59 79 132/70 96 04/03/21 00:54 79 97 04/03/21 00:49 80 96 04/03/21 00:44 75 122/59 L 97 04/03/21 00:39 79 97 04/03/21 00:34 80 96 04/03/21 00:29 94 H 97 04/03/21 00:28 90 127/69 04/03/21 00:24 83 95 04/03/21 00:19 85 95 04/03/21 00:14 82 123/67 97 04/03/21 00:09 81 97 04/03/21 00:04 78 97 04/03/21 00:00 18 04/02/21 23:59 90 98 04/02/21 23:58 89 130/71 04/02/21 23:54 80 97 04/02/21 23:49 83 97 04/02/21 23:44 95 H 98 04/02/21 23:43 75 128/69 04/02/21 23:41 98 H 94 04/02/21 23:39 82 97 04/02/21 23:34 78 97 04/02/21 23:30 18 04/02/21 23:29 78 121/68 97 04/02/21 23:24 87 97 04/02/21 23:19 88 97 04/02/21 23:14 93 H 122/71 98 04/02/21 23:09 72 97 04/02/21 23:04 81 98 04/02/21 23:00 18 04/02/21 22:59 86 99 04/02/21 22:57 81 129/67 04/02/21 22:54 76 97 04/02/21 22:53 75 126/62 04/02/21 22:49 80 98 04/02/21 22:47 36.5 C 88 125/68 04/02/21 22:44 82 98 04/02/21 22:42 82 116/63 04/02/21 22:40 86 120/65 04/02/21 22:39 82 98 04/02/21 22:38 82 127/69 04/02/21 22:36 80 123/64 04/02/21 22:34 82 122/65 98 04/02/21 22:32 80 122/67 04/02/21 22:30 96 H 18 135/76 04/02/21 22:29 89 98 04/02/21 22:28 82 126/63 04/02/21 22:26 78 129/62 04/02/21 22:24 80 126/59 L 98 04/02/21 22:22 82 125/58 L 04/02/21 22:20 87 124/58 L 04/02/21 22:19 95 H 97 04/02/21 22:18 89 119/56 L 04/02/21 22:16 95 H 130/62 04/02/21 22:14 110 H 139/88 98 04/02/21 22:12 114 H 137/89 04/02/21 22:09 114 H 96 04/02/21 22:04 125 H 98 04/02/21 22:00 20 04/02/21 21:59 97 H 98 04/02/21 21:54 100 H 97 04/02/21 21:49 103 H 99 04/02/21 21:44 83 96 04/02/21 21:42 96 H 143/78 H 04/02/21 21:39 100 H 98 04/02/21 21:34 107 H 99 04/02/21 21:30 20 04/02/21 21:29 117 H 99 04/02/21 21:28 124 H 94 04/02/21 21:24 108 H 96 04/02/21 21:19 111 H 96 04/02/21 21:14 140 H 97 04/02/21 21:11 119 H 91 04/02/21 21:09 128 H 98 04/02/21 21:04 137 H 97 04/02/21 21:00 20 04/02/21 20:59 142 H 98 04/02/21 20:54 157 H 98 04/02/21 20:49 102 H 100 04/02/21 20:44 114 H 99 04/02/21 20:39 93 H 99 04/02/21 20:37 88 149/72 H 04/02/21 20:34 91 H 18 98 04/02/21 20:12 88 144/70 H 04/02/21 20:00 18 04/02/21 19:30 18 04/02/21 19:20 75 141/65 H 04/02/21 19:14 82 163/70 H 04/02/21 19:07 36.5 C 18 04/02/21 18:53 36.6 C 82 20 117/64 04/02/21 17:30 20 04/02/21 17:22 79 145/81 H 04/02/21 16:22 75 141/81 H 04/02/21 15:30 20 04/02/21 14:54 36.8 C 82 20 130/62 04/02/21 14:30 20 04/02/21 14:00 18 04/02/21 13:30 20 04/02/21 13:00 18 04/02/21 12:48 80 119/75 04/02/21 12:47 20 04/02/21 12:23 20 04/02/21 12:00 20 04/02/21 11:36 88 144/78 H 04/02/21 11:19 18 Pain Intensity Bilateral Abdomen: Pain Intensity: 0 Transfer of Care Handoff Completed per policy Notes Mental Status: alert / awake / arousable and participated in evaluation Nausea / Vomiting: adequately controlled Pain: adequately controlled Airway Patency, RR, SpO2: stable & adequate BP & HR: stable & adequate Hydration State: stable & adequate Neuraxial Anesthesia: was administered and sensory block is resolving Anesthetic Complications: no major complications apparent and Pt Satisfied with anesthetic care
--- NOTE | 2021-04-03 11:19 | Anesthesia Procedure Note ---
Date of Service April 03, 2021 Anesthesia Post Epidural Note Vital Signs Vital Signs: Temp Pulse Resp BP Pulse Ox 36.7 C 82 18 103/51 L 99 04/03/21 05:34 04/03/21 11:16 04/03/21 07:00 04/03/21 11:12 04/03/21 11:16 Pain Intensity Bilateral Abdomen: Pain Intensity: 0 Notes Mental Status: alert / awake / arousable and participated in evaluation Nausea / Vomiting: adequately controlled Pain: adequately controlled Airway Patency, RR, SpO2: stable & adequate BP & HR: stable & adequate Hydration State: stable & adequate Neuraxial Anesthesia: was administered and sensory block is resolving Anesthetic Complications: no major complications apparent and Pt Satisfied with anesthetic care Epidural: Removed without complications and With tip intact
[2021-04-03] MEDS ORDERED: BENZOCAINE 20% AER SPR 82.5 GM CAN EXT PRN (11:59)
[2021-04-03] MEDS ORDERED: DIPHTHERIA/TETANUS/PERTUSSIS 0.5 ML SYR/VIAL IM ONE (11:59)
[2021-04-03] MEDS ORDERED: SENNA 8.6 MG TAB PO PRN (11:59)
[2021-04-03] MEDS ORDERED: SUPERCREAM 0.870% 15 GM JAR EXT PRN (11:59)
[2021-04-03] MEDS ORDERED: HYDROCORTISONE ACETATE 25 MG SUPP PR PRN (11:59)
[2021-04-03] MEDS ORDERED: MAGNESIUM HYDROXIDE SUSP 30 ML UDC PO PRN (11:59)
[2021-04-03] MEDS ORDERED: OXYTOCIN 20 UNITS in LACTATED RINGER'S 1,000 ML IV SCH (13:30)
[2021-04-03] MEDS: SIMETHICONE 80 MG CHEW PO SCH ×3 (16:12→20:39)
[2021-04-03] MEDS: DOCUSATE SODIUM 100 MG CAP PO SCH (20:39)
[2021-04-03] MEDS ORDERED: ACETAMINOPHEN 325 MG TAB PO PRN (23:55)
[2021-04-04] MEDS ORDERED: MEPERIDINE HCL 50 MG/ML CARP IV PRN (05:17)
[2021-04-04] MEDS ORDERED: ONDANSETRON INJ 2 MG/ML 2 ML VIAL IV PRN (05:17)
[2021-04-04] MEDS ORDERED: PROMETHAZINE HCL 25 MG in SODIUM CHLORIDE 0.9% 50 ML IV PRN (05:17)
[2021-04-04] MEDS ORDERED: diphenhydrAMINE 50 MG/ML VIAL IV PRN (05:17)
[2021-04-04] MEDS ORDERED: KETOROLAC 30 MG/ML VIAL IV PRN (05:17)
[2021-04-04] MEDS ORDERED: diphenhydrAMINE Capsule 25 MG CAP PO PRN (05:17)
[2021-04-04] MEDS: oxyCODONE/ACETAMINOPHEN 5mg/325mg TAB PO PRN ×4 (05:36→22:36)
[2021-04-04] MEDS: IBUPROFEN 600 MG TAB PO PRN ×4 (05:36→22:37)
--- NOTE | 2021-04-04 05:50 | Obstetrical Progress Note ---
Date of Service <Terrence Newman MD - Last Filed: 04/04/21 07:25> April 04, 2021 Assessment & Plan <Terrence Newman MD - Last Filed: 04/04/21 07:25> (1) 37 weeks gestation of : - PNL: Rh pos, RI, GBS positive, COVID neg - Feels well today. Eating well, voiding well, ambulating well - Pain well controlled with ibuprofen 600mg Q4H PRN - Routine postoperative care -- OOB, ambulation, diet progression as tolerated - After discharge will have 6 week follow-up with Dr. Yesi Goyal <Terrence Newman MD - Last Filed: 04/04/21 07:25> Catalina is a 20 y/o female who is PPD #1 following delivery after failure to progress at 37+ weeks. She reports feeling well overall this morning. Mild abdominal cramping and 4/10 pain well managed on analgesics. Voiding well. Tolerating meals overnight without difficulty. Patient has been able to ambulate some. Is passing gas, no bowel movement yet. Has persistent lochia with some improvement this morning. Currently without issues. Review of Systems Denies fever or chills. Denies shortness of breath or cough. Denies chest pain. Denies breast pain. Denies dysuria. Denies leg pain or leg swelling. Denies headache or changes in vision. Physical Exam <Terrence Newman MD - Last Filed: 04/04/21 07:25> General: Alert, oriented. No acute distress. Cardiac: Regular rate and rhythm. No murmurs. Respiratory: Clear to auscultation bilaterally a/p, no wheezes/rales/rhonchi. No increased work of breathing. Symmetrical chest rise. No respiratory distress. Abdomen: Soft, nontender, nondistended. Bowel sounds present. Uterus: Uterine fundus firm, palpable ~1 cm below umbilicus. Surgical scar is clean, dry, and intact. Lower Extremities: No lower extremity edema or swelling. No deep calf pain. Whitney's negative bilaterally. Results & Data ([facility]) <Terrence Newman MD - Last Filed: 04/04/21 07:25> Vital Signs (Past 12 Hours) Vital Signs Temp Pulse Resp BP Pulse Ox 04/04/21 04:38 16 96 04/04/21 03:40 36.8 C 89 18 106/68 95 04/04/21 02:00 16 96 04/04/21 01:30 18 96 04/04/21 00:54 36.6 C 74 20 102/66 96 04/03/21 23:55 18 96 04/03/21 23:28 36.8 C 79 18 93/61 L 98 04/03/21 21:30 20 97 04/03/21 20:30 20 96 04/03/21 19:30 36.8 C 84 18 123/72 96 04/03/21 18:25 20 97 <Myrna Key MD, FACOG - Last Filed: 04/04/21 07:35> Co-Signing Physician Notes Resident Physician Supervision Note: I interviewed and examined the patient. Discussed with Dr. Newman and agree with findings and plan as documented in the note. Any exceptions or clarifications are listed here: Doing well. Routine postop day 1. Documented By: Myrna Key MD, FACOG Resident Activity Tracking <Terrence Newman MD - Last Filed: 04/04/21 07:25> Resident Involvement: Resident Care Provided Care Provided: OB Delivery
[2021-04-04 06:26] LABS: Basophils # (auto) 0.02 K/uL (0-0.2); Basophils % (auto) 0.1 %; Eosinophils # (auto) 0.18 K/uL (0-0.5); Eosinophils % (auto) 1.2 %; Hematocrit (blood only) 33.1 % (37-47); Immature Granulocytes # (auto) 0.07 K/uL (0.00-0.02); Immature Granulocytes % (auto) 0.5 %; Lymphocytes # (auto) 2.65 K/uL (1.2-3.4); Lymphocytes % (auto) 18.3 %; Mean Corpuscular Hemoglobin 27.5 pg (25-34); Mean Corpuscular Hgb Conc 33.2 g/dL (32-36); Mean Corpuscular Volume 82.8 fL (80-100); Mean Platelet Volume 10.3 fL (7.4-10.4); Monocytes # (auto) 1.46 K/uL (0.11-0.59); Monocytes % (auto) 10.1 %; Neutrophils # (auto) 10.14 K/uL (1.4-6.5); Neutrophils % (auto) 69.8 %; Platelet Count 217 K/uL (130-400); RDW Coefficient of Variation 14.5 % (11.5-14.5); White Blood Count 14.52 K/uL (4.8-10.8)
[2021-04-04] MEDS: PRENATAL VITAMIN 1 TAB PO SCH (07:59)
[2021-04-04] MEDS: FERROUS SULFATE 325 MG TAB PO SCH (07:59)
[2021-04-04] MEDS: SIMETHICONE 80 MG CHEW PO SCH ×4 (07:59→22:38)
[2021-04-04] MEDS: DOCUSATE SODIUM 100 MG CAP PO SCH ×2 (07:59→22:36)
[2021-04-04] MEDS ORDERED: bisacodyL 5 MG TABEC PO SCH (20:00)
--- NOTE | 2021-04-05 05:46 | Obstetrical Progress Note ---
Date of Service <Terrence Newman MD - Last Filed: 04/05/21 06:38> April 05, 2021 Assessment & Plan <Terrence Newman MD - Last Filed: 04/05/21 06:38> (1) 37 weeks gestation of : - PNL: Rh pos, RI, GBS positive, COVID neg - Feels well today. Eating well, voiding well, ambulating well - Pain well controlled with analgesics - Routine postoperative care -- OOB, ambulation, diet progression as tolerated - After discharge will have 6 week follow-up with Dr. Key Subjective <Terrence Newman MD - Last Filed: 04/05/21 06:38> Catalina is a 20 y/o female who is POD #2 following delivery at 37+ weeks after failure to progress. She reports feeling well overall this morning. Moderate abdominal cramping and 6/10 pain well managed on analgesics. Voiding well. Tolerating meals overnight without difficulty. Patient has been able to ambulate some. Has been passing gas, no bowel movement as of yet. Has persistent lochia with some improvement this morning. Currently without issues. Review of Systems Denies fever or chills. Denies shortness of breath or cough. Denies chest pain. Denies breast pain. Denies dysuria. Denies leg pain or leg swelling. Denies headache or changes in vision. Physical Exam <Terrence Newman MD - Last Filed: 04/05/21 06:38> General: Alert, oriented. No acute distress. Cardiac: Regular rate and rhythm. No murmurs. Respiratory: Clear to auscultation bilaterally a/p, no wheezes/rales/rhonchi. No increased work of breathing. Symmetrical chest rise. No respiratory distress. Abdomen: Soft, nontender, nondistended. Bowel sounds present. Uterus: Uterine fundus firm, palpable ~2 cm below umbilicus. Surgical scar is clean, dry, and intact. Lower Extremities: No lower extremity edema or swelling. No deep calf pain. Whitney's negative bilaterally. Results & Data ([facility]) <Terrence Newman MD - Last Filed: 04/05/21 06:38> Vital Signs (Past 12 Hours) Vital Signs Temp Pulse Resp BP Pulse Ox 04/05/21 00:00 36.7 C 71 18 106/72 94 <Helen Graves MD - Last Filed: 04/05/21 07:08> Co-Signing Physician Notes Resident Physician Supervision Note: I interviewed and examined the patient. Discussed with Dr. Macdonald and agree with findings and plan as documented in the note. Any exceptions or clarifications are listed here: POD2 from [facility] for FTP. Meeting all pp milestones. Denies s/s pre-eclampsia. VSS, normotensive. Exam benign, incision c/d/i, fundus firm and NT below umbilicus, BLE nontender. Desires d/c home today, will return in 1 wk for BP check to the office Documented By: Helen Graves MD Resident Activity Tracking <Terrence Newman MD - Last Filed: 04/05/21 06:38> Resident Involvement: Resident Care Provided Care Provided: OB Delivery
[2021-04-05] MEDS: IBUPROFEN 600 MG TAB PO PRN ×2 (05:51→13:21)
[2021-04-05] MEDS: oxyCODONE/ACETAMINOPHEN 5mg/325mg TAB PO PRN ×2 (05:52→13:21)
[2021-04-05 06:18] LABS: Hematocrit (blood only) 30.9 % (37-47); Hemoglobin 10.3 g/dL (12.0-16.0)
[2021-04-05] MEDS: PRENATAL VITAMIN 1 TAB PO SCH (09:08)
[2021-04-05] MEDS: FERROUS SULFATE 325 MG TAB PO SCH (09:08)
[2021-04-05] MEDS: DOCUSATE SODIUM 100 MG CAP PO SCH (09:08)
[2021-04-05] MEDS: SIMETHICONE 80 MG CHEW PO SCH ×2 (09:08→13:21)
[2021-04-05] MEDS ORDERED: bisacodyL 10 MG SUPP PR PRN (11:14)
--- NOTE | 2021-04-10 13:21 | Discharge Summary (DS) ---
DATE OF ADMISSION: 04/02/2021 DATE OF DISCHARGE: 04/05/2021 ADMIT DIAGNOSES: 1. Intrauterine at 37 and 1/7 weeks. 2. Gestational hypertension. 3. Diet-controlled gestational diabetes. 4. Morbid obesity. DISCHARGE DIAGNOSES: 1. Intrauterine at 37 and 1/7 weeks. 2. Gestational hypertension. 3. Diet-controlled gestational diabetes. 4. Morbid obesity. 5. Failure to progress. PROCEDURES: Pitocin augmentation, amniotomy, intrauterine pressure catheter, primary low transverse section. HISTORY OF PRESENT ILLNESS: The patient is a 20-year-old female, 1, para 0, at 37 and 1/7 we eks who presents for induction of labor for gestational hypertension. She notes good movement, no vaginal bleeding or leaking of fluid. She notes no regular contractions. She had a Rice bulb p laced the evening prior to admission that fell out around 11:30. She has been following with the [facility] hypertension protocol with reassuring testing. Additionally, this baby has a 2-vessel cord with a normal echo and normal growth ultrasounds. She has been vaping through . She had a low fraction with repeat with a low risk cell-free DNA. She has GBS positive in he r urine and is being treated in labor. For the rest of the patient's detailed history and physical, please see her dictated history and physical. ASSESSMENT: This is a 37-1/7 weeks with gestational hypertension and gestational diabetes and morbid obesity who presents for induction of labor. HOSPITAL COURSE: The patient was admitted. She was started with Pitocin augmentation. On the ng of day #1, she had amniotomy for clear fluid when she was 4, 50% and -3. This was as I said at ap proximately 7:00 at night. At 11:00, she was 4, 90%, -1. An IUPC and FSE were placed. At 3:00 in the morning, she was 5-6, 100% and 0 station with adequate contractions per the IUPC since probably plac ement. When I took over the patient at 8:00 the next morning, I checked her, found to be 5-1/2, 100% and 0 with essentially no change since 3:30 a.m. She is eric every 3-4 minutes with an intrau terine pressure catheter in. Her Pitocin was at 20 and her MVUs had been 200+ since at least 3:30 and likely midnight. She was 14+ hours from rupture. We discussed the situation at this time. Per my e xam, it felt like she had a small pelvis. The baby was trying to mold to fit the pelvis, but I was s uspicious given that we essentially had no change since probably before 3:30 a.m. that we had failur e to progress. We discussed the pros and cons of continuing with labor versus the risks and benefits of the section, which were clearly reviewed with the patient. The patient decided to procee d with section. She underwent a primary low transverse section in the main OR with out difficulty. Estimated blood loss 600 mL. She delivered a viable male infant in cephalic presenta tion, Apgars were 7 and 9. Normal uterus, tubes and ovaries were noted bilaterally. The patient's postoperative course was uncomplicated. She tolerated a regular diet, ambulated withou t difficulty, voided after the removal of her Rice catheter and had her pain well controlled on oral pain medications. Her discharge H and H was 10.3 and 30.9. She will follow up in 6 weeks at the [facility] for routine care. Job ID: [id number]
== END 2021-04-05 14:35 | disposition home or self-care (01) | DRG 787 ==
LOC: 4S1 07:36 → 4S2 04-03 13:15
DX: O24.420 Gestational diabetes mellitus in childbirth, diet controlled; O34.40 Maternal care for other abnormalities of cervix, unspecified trimester; X58.XXXA Exposure to other specified factors, initial encounter; Z37.0 Single live birth; T74.11XA Adult physical abuse, confirmed, initial encounter; O99.334 Smoking (tobacco) complicating childbirth; F17.200 Nicotine dependence, unspecified, uncomplicated; S20.212A Contusion of left front wall of thorax, initial encounter; Z3A.37 37 weeks gestation of pregnancy; R00.0 Tachycardia, unspecified; O13.4 Gestational [pregnancy-induced] hypertension without significant proteinuria, complicating childbirth; O99.824 Streptococcus B carrier state complicating childbirth; B95.1 Streptococcus, group B, as the cause of diseases classified elsewhere; Y04.2XXA Assault by strike against or bumped into by another person, initial encounter; O9A.32 Physical abuse complicating childbirth